=== PATIENT | male | born 1980 | race Caucasian/White ===

== ENCOUNTER 2016-11-27 15:51 | Emergency (ER) | payer MEDICAID ==
[2016-11-27 15:56] VITALS: BMI 25.4
[2016-11-27 16:01] VITALS: TEMP 98.2
--- NOTE | 2016-11-27 16:53 | RAD ---
PROCEDURE: Left middle finger radiographs. HISTORY: finger injury, pain and swelling to PIP joint COMPARISON: None available. TECHNIQUE: AP radiograph of the left hand, as well as spot oblique and lateral images of left middle finger were obtained. FINDINGS: LEFT MIDDLE FINGER: Left 3rd digit appears intact without acute displaced fracture. Remainder of the left hand (as seen on the AP view) is grossly unremarkable. JOINTS: No dislocation. SOFT TISSUES: Soft tissue swelling. No evidence of radiopaque foreign body. OTHER FINDINGS: None. IMPRESSION: Soft tissue swelling of the 3rd digit. No acute displaced fracture identified. If symptoms persist or if there is continued clinical concern, x-ray follow-up in 7-10 days should be considered.
[2016-11-27] MEDS ORDERED: Bacitracin 500 Units/gm Oint Foilpak UD TOP ONE (16:54)
[2016-11-27] MEDS ORDERED: Bacitracin 500 Units/gm Oint Foilpak UD ONE (17:06)
--- NOTE | 2016-11-27 17:26 | C.PDOC ---
History Of Present Illness 36 y/o male presents to ED with complaints of pain and wound to left 3rd finger. Patient states yesterday while in the car trying to move seat finger was caught on metal piece and cut 3rd left finger. Patient reports he wrapped the finger but progressively became swollen and painful which prompted visit to ED. Patient denies other injuries. Time Seen by Provider: 11/27/16 16:04 Chief Complaint (Nursing): Finger,Hand,&Wrist History Per: Patient History/Exam Limitations: no limitations Onset/Duration Of Symptoms: Days Current Symptoms Are (Timing): Still Present Quality: "Pain" Past Medical History Reviewed: Historical Data, Nursing Documentation, Vital Signs Vital Signs: Last Vital Signs Temp 98.2 F 11/27/16 15:56 Pulse 75 11/27/16 17:31 Resp 18 11/27/16 17:31 BP 108/58 L 11/27/16 17:31 Pulse Ox 98 11/27/16 18:46 Surgical History: No Surg Hx Family History: States: No Known Family Hx - Social History Hx Alcohol Use: No Hx Substance Use: No - Immunization History Hx Tetanus Toxoid Vaccination: No Hx Influenza Vaccination: No Hx Pneumococcal Vaccination: No Review Of Systems Except As Marked, All Systems Reviewed And Found Negative. Eyes: Negative for: Vision Change Gastrointestinal: Negative for: Nausea, Vomiting Musculoskeletal: Positive for: Hand Pain Skin: Negative for: Rash Neurological: Negative for: Weakness, Numbness Physical Exam - Physical Exam Appears: Non-toxic, No Acute Distress Skin: Normal Color, Warm, Dry, No Rash Head: Atraumatic, Normacephalic Eye(s): bilateral: Normal Inspection Oral Mucosa: Moist Neck: Normal ROM, Supple Chest: Symmetrical Extremity: Capillary Refill (<2 seconds), No Deformity, Other (1cm wound over dorsal aspect of PIP joint on left 3rd finger. No active bleeding, Normal rom with pain) Pulses: Left Radial: Normal, Right Radial: Normal Neurological/Psych: Oriented x3, Normal Speech, Normal Motor, Normal Sensation ED Course And Treatment O2 Sat by Pulse Oximetry: 98 (RA) Pulse Ox Interpretation: Normal - Other Rad left hand X-Ray: Viewed By Me, Read By Radiologist Interpretation: PROCEDURE: Left middle finger radiographs. HISTORY: finger injury, pain and swelling to PIP joint. COMPARISON: None available. TECHNIQUE : AP radiograph of the left hand, as well as spot oblique and lateral images of left middle finger were obtained. FINDINGS: LEFT MIDDLE FINGER: Left 3rd digit appears intact without acute displaced fracture. Remainder of the left hand (as seen on the AP view) is grossly unremarkable. JOINTS: No dislocation. SOFT TISSUES: Soft tissue swelling. No evidence of radiopaque foreign body. OTHER FINDINGS: None. IMPRESSION: Soft tissue swelling of the 3rd digit. No acute displaced fracture identified. If symptoms persist or if there is continued clinical concern, x-ray follow-up in 7-10 days should be considered. Medical Decision Making Medical Decision Making: Tetanus vaccine administered. The wound was irrigated with copious amount of pressurized saline and betadine. Xrays are negative for fracture. The area of redness is most likely cellulitis. Antibiotics for finger given. Splint applied by crown and bridge dental lab technician for possible sprain injury. Disposition - Disposition Referrals: Alban Giraldo MD [Staff Provider] - Disposition: HOME/ ROUTINE Disposition Time: 17:20 Condition: GOOD Additional Instructions: Clean the wound twice a day and apply antibiotic ointment. Take antibiotics until completed. Return if worsened. Prescriptions: Cephalexin [cephalexin] 1,000 mg PO BID #28 cap Mupirocin 2% Cream [Bactroban 2%] 30 gm EXT BID #2 tube Instructions: Cellulitis (ED) Forms: [employer] (Kinyarwanda) - Clinical Impression Clinical Impression: Cellulitis, Finger injury - PA / [employer] / Resident Statement MD/ has reviewed & agrees with the documentation as recorded. - Scribe Statement The provider has reviewed the documentation as recorded by the Jyotiibmanuela Riggs All medical record entries made by the Erica were at my direction and personally dictated by me. I have reviewed the chart and agree that the record accurately reflects my personal performance of the history, physical exam, medical decision making, and the department course for this patient. I have also personally directed, reviewed, and agree with the discharge instructions and disposition.
[2016-11-27 17:32] VITALS: BP 108/58; PULSE 75; RESP 18
[2016-11-27 18:44] VITALS: O2SAT 98
== END 2016-11-27 17:32 | disposition home or self-care (01) ==
LOC: C.ER 15:51
DX: L03.012 Cellulitis of left finger (principal); S61.203A Unspecified open wound of left middle finger without damage to nail, initial encounter; W23.0XXA Caught, crushed, jammed, or pinched between moving objects, initial encounter

== ENCOUNTER 2017-05-04 10:40 | Emergency (ER) | payer MEDICAID ==
[2017-05-04 10:40] VITALS: BMI 25.4
[2017-05-04 12:15] VITALS: BP 100/69; PULSE 81; RESP 16; TEMP 98.4; O2SAT 99
[2017-05-04] MEDS ORDERED: Tetracaine 0.5% Ophth (OR ONLY) ONE (12:30)
[2017-05-04] MEDS ORDERED: Fluorescein 1 mg Ophthalmic Strip ONE (12:37)
--- NOTE | 2017-05-04 16:20 | C.PDOC ---
History Of Present Illness 37 y/o male presents to the ER complaining of a foreign body sensation and redness to the right eye which has been present for the past 3 days. Patient states that he was working on his car when he felt something in his right eye. Patient reports that he did not seek any medical attention until now. Chief Complaint (Nursing): Eye Problem History Per: Patient History/Exam Limitations: no limitations Onset/Duration Of Symptoms: Days Current Symptoms Are (Timing): Still Present Severity: Moderate Past Medical History Reviewed: Historical Data, Nursing Documentation, Vital Signs Vital Signs: Last Vital Signs Temp 98.4 F 05/04/17 12:12 Pulse 81 05/04/17 12:12 Resp 16 05/04/17 12:12 BP 100/69 05/04/17 12:12 Pulse Ox 99 05/04/17 16:27 - Medical History PMH: No Chronic Diseases Surgical History: No Surg Hx Family History: States: No Known Family Hx - Social History Hx Alcohol Use: No Hx Substance Use: No - Immunization History Hx Tetanus Toxoid Vaccination: No Hx Influenza Vaccination: No Hx Pneumococcal Vaccination: No Review Of Systems Except As Marked, All Systems Reviewed And Found Negative. Eyes: Positive for: Redness (right eye), Other (foreign body sensation in right eye) Physical Exam - Physical Exam Appears: Non-toxic, No Acute Distress Skin: Normal Color, Warm Head: Atraumatic, Normacephalic Eye(s): right: Other (foreign body at 2 o' clock position, no corneal abrasions visualized with fluorescein), left: Normal Inspection Nose: Normal Oral Mucosa: Moist Neck: Supple Chest: Symmetrical Extremity: Normal ROM Neurological/Psych: Oriented x3, Normal Speech, Normal Motor, Normal Sensation ED Course And Treatment O2 Sat by Pulse Oximetry: 99 (RA) Pulse Ox Interpretation: Normal Progress Note: Tetracaine drops applied to right eye. Foreign body extracted with a 19 gauge needle point. Patient discharged and sent to opthamology from ER for follow up. Disposition - Disposition Referrals: Edwin Sims [Staff Provider] - Disposition: HOME/ ROUTINE Disposition Time: 12:45 Condition: IMPROVED Additional Instructions: Thank you for letting us take care of you today. The emergency medical care you received today was directed at your acute symptoms. If you were prescribed any medication, please fill it and take as directed. It may take several days for your symptoms to resolve. Return to the Emergency Department if your symptoms worsen, do not improve, or if you have any other problems. Please contact your doctor or call one of the physicians/clinics you have been referred to that are listed on the Patient Visit Information form that is included in your discharge packet. Bring any paperwork you were given at discharge with you along with any medications you are taking to your follow up visit. Our treatment cannot replace ongoing medical care by a primary care provider (PCP) outside of the emergency department. Thank you for allowing the [facility] team to be part of your care today. Follow up with the eye doctor now for re-evaluation. Prescriptions: Polymyxin/Trimethoprim Sulfate [Polytrim Ophth Soln] 1 drop OD Q4 #1 bottle Instructions: Eye Foreign Body (ED) Forms: [employer] (Tajik) - Clinical Impression Clinical Impression: Corneal foreign body - Scribe Statement The provider has reviewed the documentation as recorded by the Jyotiibe Daryn Santos Provider Attestation: All medical record entries made by the Scribe were at my direction and personally dictated by me. I have reviewed the chart and agree that the record accurately reflects my personal performance of the history, physical exam, medical decision making, and the department course for this patient. I have also personally directed, reviewed, and agree with the discharge instructions and disposition.
== END 2017-05-04 12:55 | disposition home or self-care (01) ==
LOC: C.ER 10:40
DX: T15.01XA Foreign body in cornea, right eye, initial encounter (principal); X58.XXXA Exposure to other specified factors, initial encounter